=== PATIENT | female | born 1995 | race Caucasian/White ===

== ENCOUNTER 2020-01-25 17:26 | Inpatient (IN) ==
[2020-01-25 18:14] LABS: Bacteria,Urine Few per hpf (None-Few); Bilirubin,Urine Negative (Negative); Blood,Urine Negative (Negative); Clarity,Urine Turbid (Clear); Color,Urine Yellow (Yellow); Glucose,Urine (UA) Normal (Normal); Ketones,Urine Negative (Negative); Leukocyte Esterase,Urine Negative (Negative); Mucus,Urine Few per lpf (None-Few); Nitrite,Urine Negative (Negative); PH,Urine 6.5 pH Units (5.0-8.0); Protein,Urine Trace mg/dL (Neg-Trace); RBC,Urine 0-3 per hpf (0-3); Specific Gravity,Urine 1.024 (1.010-1.025); Squamous Epithelial Cell,Urine Moderate per hpf (None-Few); Urobilinogen,Urine Normal (Normal)
[2020-01-25 18:16] LABS: Amphetamine Screen,Urine Negative ng/mL (Cutoff=1000); Barbiturate Screen,Urine Negative ng/mL (Cutoff=200); Benzodiazepines Screen,Urine Negative ng/mL (Cutoff=200); Cannabinoid Screen,Urine Positive ng/mL (Cutoff = 50); Cocaine Screen,Urine Negative ng/mL (Cutoff= 300); Opiate Screen,Urine Negative ng/mL (Cutoff=300); Phencyclidine Screen,Urine Negative ng/mL (Cutoff=25)
[2020-01-25 18:17] LABS: Basophils # 0.1 K/mcL (0.0-0.2); Basophils % 0.7 %; Eosinophils # 0.1 K/mcL (0.0-0.6); Eosinophils % 0.5 %; Hematocrit 42.1 % (35.3-44.9); Hemoglobin 12.7 g/dL (11.5-15.4); Immature Granulocytes % 0.2 % (0-4); Lymphocytes # 2.1 K/mcL (0.6-4.6); Lymphocytes % 18.7 %; Mean Corpuscular HGB Conc 30.2 g/dL (31.6-35.5); Mean Corpuscular Hemoglobin 24.6 pg (28.0-33.3); Mean Corpuscular Volume 81.4 fL (83.0-100.0); Mean Platelet Volume 11.6 fL (9.4-12.4); Monocytes # 0.9 K/mcL (0.0-1.3); Monocytes % 8.3 %; Neutrophils # 8.1 K/mcL (1.6-8.9); Platelet Count 296 K/mcL (140-400); Red Blood Count 5.17 M/mcL (3.82-4.97); Red Cell Distribution Width 15.5 % (11.5-14.5); Segmented Neutrophils % 71.6 %; White Blood Count 11.3 K/mcL (4.3-11.1)
[2020-01-25 18:33] LABS: Acetaminophen < 10 mcg/mL (10-20); BUN/Creatinine Ratio 19 (6-26); Blood Urea Nitrogen 11 mg/dL (6-20); Calcium 9.6 mg/dL (8.6-10.3); Carbon Dioxide 26 mEq/L (23-29); Chloride 103 mEq/L (98-107); Ethanol < 10 mg/dL (Less than 10); Glucose 93 mg/dL (70-105); Osmolality,Calculated 283 (280-300); Potassium 3.9 mEq/L (3.5-5.1); Salicylate < 2.5 mg/dL (15.0-30.0); Sodium 137 mEq/L (136-145); eGFR For African Americans > 60 (> 60); eGFR For Non-African Americans > 60 (> 60)
[2020-01-25] MEDS ORDERED: *HR* LORazepam 1 MG TABLET PO PRN (20:23)
[2020-01-25] MEDS ORDERED: haloperidoL 5 MG TABLET PO PRN (20:23)
[2020-01-25] MEDS ORDERED: *HR* LORazepam 2 MG/ML VIAL IM PRN (20:23)
[2020-01-25] MEDS ORDERED: MOM Conc 10 ML UD.LIQ PO PRN (20:23)
[2020-01-25] MEDS ORDERED: Haloperidol Lactate 5 MG/ML VIAL IM PRN (20:23)
[2020-01-25] MEDS ORDERED: Acetaminophen 325 MG TABLET PO PRN (20:23)
[2020-01-25] MEDS ORDERED: Mag Hydrox/Al Hydrox/Simeth 30 ML UDC PO PRN (20:23)
[2020-01-25] MEDS: hydrOXYzine pamoate 25 MG CAPSULE PO PRN (23:06)
[2020-01-25] MEDS: traZODone 50 MG TABLET PO PRN (23:06)
[2020-01-26] MEDS: BuPROPion XL (24 HR) 150 MG TABLET PO SCH (10:13)
[2020-01-26] MEDS: hydrOXYzine pamoate 25 MG CAPSULE PO PRN ×2 (10:14→21:33)
[2020-01-26] MEDS: traZODone 50 MG TABLET PO PRN (21:33)
[2020-01-27] MEDS ORDERED: Loratadine/Pseudophed (12 HR) 1 EACH TABLET PO PRN (09:41)
[2020-01-27] MEDS: BuPROPion XL (24 HR) 150 MG TABLET PO SCH (09:42)
[2020-01-27] MEDS: hydrOXYzine pamoate 25 MG CAPSULE PO PRN (10:59)
[2020-01-27 11:02] VITALS: BP 126/86
== END 2020-01-27 13:18 | disposition home or self-care (01) | DRG 751 ==
LOC: EMEROOARM 17:26 → 1ANU 20:14
PROVIDERS: ADMIT Psychiatry & Neurology Psychiatry; ATTEND Psychiatry & Neurology Psychiatry

== ENCOUNTER → 2021-07-31 19:24 | Observation (INO) ==
[2021-07-31 18:44] LABS: Bilirubin,Urine Negative (Negative); Blood,Urine Negative (Negative); Clarity,Urine Turbid (Clear); Color,Urine Yellow (Yellow); Glucose,Urine (UA) Normal (Normal); Ketones,Urine Trace mg/dL (Negative); Leukocyte Esterase,Urine Small (Negative); Mucus,Urine Few per lpf (None-Few); Nitrite,Urine Negative (Negative); Protein,Urine 50 mg/dL (Neg-Trace); Specific Gravity,Urine > 1.030 (1.010-1.025); Sperm,Urine Present per hpf (None Seen); Squamous Epithelial Cell,Urine Many per hpf (None-Few)
== END | disposition home or self-care (01) ==
LOC: 1NENULAB
PROVIDERS: ADMIT Student in an Organized Health Care Education/Training Program; ATTEND Student in an Organized Health Care Education/Training Program

== ENCOUNTER → 2021-10-08 21:57 | Observation (INO) ==
[2021-10-08 21:09] LABS: Bilirubin,Urine Negative (Negative); Blood,Urine Negative (Negative); Clarity,Urine Turbid (Clear); Color,Urine Yellow (Yellow); Glucose,Urine (UA) Normal (Normal); Ketones,Urine Negative (Negative); Leukocyte Esterase,Urine Small (Negative); Mucus,Urine Few per lpf (None-Few); Nitrite,Urine Negative (Negative); PH,Urine 6.5 pH Units (5.0-8.0); Protein,Urine 30 mg/dL (Neg-Trace); RBC,Urine 0-3 per hpf (0-3); Specific Gravity,Urine > 1.030 (1.010-1.025); Squamous Epithelial Cell,Urine Many per hpf (None-Few); Urobilinogen,Urine Normal (Normal); WBC,Urine 0-3 per hpf (0-3)
== END | disposition home or self-care (01) ==
LOC: 1NENULAB
PROVIDERS: ADMIT Registered Nurse; ATTEND Registered Nurse

== ENCOUNTER 2021-11-07 20:16 | Observation (INO) ==
[2021-11-07 20:46] LABS: Basophils % 0.3 %; Eosinophils % 0.4 %; Hematocrit 36.7 % (35.3-44.9); Hemoglobin 11.8 g/dL (11.5-15.4); Immature Granulocytes % 0.4 % (0-4); Lymphocytes # 1.9 K/mcL (0.6-4.6); Lymphocytes % 17.5 %; Mean Corpuscular HGB Conc 32.2 g/dL (31.6-35.5); Mean Corpuscular Hemoglobin 28.7 pg (28.0-33.3); Mean Corpuscular Volume 89.3 fL (83.0-100.0); Mean Platelet Volume 12.2 fL (9.4-12.4); Monocytes # 0.7 K/mcL (0.0-1.3); Monocytes % 6.4 %; Neutrophils # 8.4 K/mcL (1.6-8.9); Platelet Count 215 K/mcL (140-400); Red Blood Count 4.11 M/mcL (3.82-4.97); Red Cell Distribution Width 15.9 % (11.5-14.5); White Blood Count 11.1 K/mcL (4.3-11.1)
[2021-11-07 20:56] LABS: Protein/Creatinine Ratio,Urine 0.23 mg/mg (0.00-0.20)
[2021-11-07 20:59] LABS: Bacteria,Urine Few per hpf (None-Few); Bilirubin,Urine Negative (Negative); Blood,Urine Negative (Negative); Clarity,Urine Turbid (Clear); Color,Urine Yellow (Yellow); Glucose,Urine (UA) Normal (Normal); Ketones,Urine Trace mg/dL (Negative); Leukocyte Esterase,Urine Trace (Negative); Mucus,Urine Few per lpf (None-Few); Nitrite,Urine Negative (Negative); Protein,Urine 100 mg/dL (Neg-Trace); RBC,Urine 0-3 per hpf (0-3); Specific Gravity,Urine > 1.030 (1.010-1.025); Squamous Epithelial Cell,Urine Many per hpf (None-Few); Urobilinogen,Urine Normal (Normal)
[2021-11-07 21:06] LABS: Alanine Aminotransferase 7 Units/L (7-52); Aspartate Amino Transferase 9 Units/L (13-39); BUN/Creatinine Ratio 18 (6-26); Blood Urea Nitrogen 10 mg/dL (6-20); Lactate Dehydrogenase 98 Units/L (140-271); Uric Acid 5.5 mg/dL (2.3-7.6); eGFR For African Americans > 60 (> 60); eGFR For Non-African Americans > 60 (> 60)
== END 2021-11-07 21:17 | disposition home or self-care (01) ==
LOC: 1NENULAB
PROVIDERS: ADMIT Registered Nurse; ATTEND Registered Nurse

== ENCOUNTER → 2021-11-14 22:25 | Observation (INO) ==
[2021-11-14 21:09] LABS: Basophils % 0.2 %; Eosinophils # 0.1 K/mcL (0.0-0.6); Eosinophils % 0.6 %; Hematocrit 35.6 % (35.3-44.9); Hemoglobin 11.5 g/dL (11.5-15.4); Immature Granulocytes % 0.5 % (0-4); Lymphocytes # 2.1 K/mcL (0.6-4.6); Lymphocytes % 15.6 %; Mean Corpuscular HGB Conc 32.3 g/dL (31.6-35.5); Mean Corpuscular Volume 89.9 fL (83.0-100.0); Mean Platelet Volume 12.5 fL (9.4-12.4); Monocytes % 7.1 %; Neutrophils # 10.3 K/mcL (1.6-8.9); Platelet Count 210 K/mcL (140-400); Red Blood Count 3.96 M/mcL (3.82-4.97); Red Cell Distribution Width 16.5 % (11.5-14.5); White Blood Count 13.6 K/mcL (4.3-11.1)
[2021-11-14 21:25] LABS: Alanine Aminotransferase 9 Units/L (7-52); Aspartate Amino Transferase 12 Units/L (13-39); BUN/Creatinine Ratio 24 (6-26); Blood Urea Nitrogen 14 mg/dL (6-20); Lactate Dehydrogenase 105 Units/L (140-271); eGFR For African Americans > 60 (> 60); eGFR For Non-African Americans > 60 (> 60)
[2021-11-14 22:10] LABS: Protein/Creatinine Ratio,Urine 0.24 mg/mg (0.00-0.20)
[~2021-11-14 22:25] MED LIST: Metoclopramide 10 MG/2 ML VIAL IVP ONE
== END | disposition home or self-care (01) ==
LOC: 1NENULAB
PROVIDERS: ADMIT Registered Nurse; ATTEND Registered Nurse

== ENCOUNTER → 2021-11-16 18:13 | Observation (INO) ==
[2021-11-16 16:55] LABS: Basophils # 0.1 K/mcL (0.0-0.2); Basophils % 0.4 %; Eosinophils # 0.1 K/mcL (0.0-0.6); Eosinophils % 0.5 %; Hematocrit 36.6 % (35.3-44.9); Hemoglobin 12.1 g/dL (11.5-15.4); Immature Granulocytes % 0.4 % (0-4); Lymphocytes # 1.7 K/mcL (0.6-4.6); Lymphocytes % 13.9 %; Mean Corpuscular HGB Conc 33.1 g/dL (31.6-35.5); Mean Corpuscular Hemoglobin 29.8 pg (28.0-33.3); Mean Corpuscular Volume 90.1 fL (83.0-100.0); Mean Platelet Volume 12.2 fL (9.4-12.4); Neutrophils # 9.5 K/mcL (1.6-8.9); Platelet Count 236 K/mcL (140-400); Red Blood Count 4.06 M/mcL (3.82-4.97); Red Cell Distribution Width 16.4 % (11.5-14.5); Segmented Neutrophils % 76.8 %; White Blood Count 12.4 K/mcL (4.3-11.1)
[2021-11-16 16:56] LABS: Bacteria,Urine Few per hpf (None-Few); Bilirubin,Urine Negative (Negative); Blood,Urine Negative (Negative); Clarity,Urine Turbid (Clear); Color,Urine Yellow (Yellow); Glucose,Urine (UA) Normal (Normal); Ketones,Urine Trace mg/dL (Negative); Leukocyte Esterase,Urine Negative (Negative); Mucus,Urine Few per lpf (None-Few); Nitrite,Urine Negative (Negative); Protein,Urine 70 mg/dL (Neg-Trace); RBC,Urine 0-3 per hpf (0-3); Specific Gravity,Urine > 1.030 (1.010-1.025); Squamous Epithelial Cell,Urine Many per hpf (None-Few)
[2021-11-16 17:11] LABS: Protein/Creatinine Ratio,Urine 0.3 mg/mg (0.00-0.20)
[2021-11-16 17:22] LABS: Alanine Aminotransferase 10 Units/L (7-52); Aspartate Amino Transferase 13 Units/L (13-39); BUN/Creatinine Ratio 24 (6-26); Blood Urea Nitrogen 11 mg/dL (6-20); Lactate Dehydrogenase 113 Units/L (140-271); Uric Acid 4.8 mg/dL (2.3-7.6); eGFR For African Americans > 60 (> 60); eGFR For Non-African Americans > 60 (> 60)
== END | disposition home or self-care (01) ==
LOC: 1NENULAB
PROVIDERS: ADMIT Advanced Practice Midwife; ATTEND Advanced Practice Midwife

== ENCOUNTER 2021-11-20 18:13 | Inpatient (IN) ==
[2021-11-20] MEDS ORDERED: Ondansetron 4 MG/2 ML VIAL IVP PRN (18:34)
[2021-11-20] MEDS ORDERED: *HR* Nalbuphine 10 MG/ML AMPUL IV PRN (18:34)
[2021-11-20] MEDS ORDERED: Naloxone 0.4 MG/ML INJ IVP PRN (18:34)
[2021-11-20] MEDS ORDERED: Famotidine 20 MG/2 ML VIAL IVP PRN (18:34)
[2021-11-20 19:33] LABS: Basophils % 0.3 %; Eosinophils % 0.3 %; Hemoglobin 11.7 g/dL (11.5-15.4); Immature Granulocytes % 0.3 % (0-4); Lymphocytes # 1.8 K/mcL (0.6-4.6); Lymphocytes % 15.2 %; Mean Corpuscular HGB Conc 32.5 g/dL (31.6-35.5); Mean Corpuscular Hemoglobin 29.4 pg (28.0-33.3); Mean Corpuscular Volume 90.5 fL (83.0-100.0); Mean Platelet Volume 12.6 fL (9.4-12.4); Monocytes # 0.8 K/mcL (0.0-1.3); Monocytes % 6.5 %; Neutrophils # 9.2 K/mcL (1.6-8.9); Platelet Count 207 K/mcL (140-400); Red Blood Count 3.98 M/mcL (3.82-4.97); Red Cell Distribution Width 16.3 % (11.5-14.5); Segmented Neutrophils % 77.4 %; White Blood Count 11.9 K/mcL (4.3-11.1)
[2021-11-20 19:50] LABS: Amphetamine Screen,Urine Negative ng/mL (Cutoff=1000); Barbiturate Screen,Urine Negative ng/mL (Cutoff=200); Benzodiazepines Screen,Urine Negative ng/mL (Cutoff=200); Cannabinoid Screen,Urine Negative ng/mL (Cutoff = 50); Cocaine Screen,Urine Negative ng/mL (Cutoff= 300); Creatinine,Urine 116 mg/dL; Opiate Screen,Urine Negative ng/mL (Cutoff=300); Phencyclidine Screen,Urine Negative ng/mL (Cutoff=25); Protein/Creatinine Ratio,Urine 0.24 mg/mg (0.00-0.20)
[2021-11-20 19:54] LABS: Alanine Aminotransferase 10 Units/L (7-52); Aspartate Amino Transferase 11 Units/L (13-39); BUN/Creatinine Ratio 23 (6-26); Blood Urea Nitrogen 11 mg/dL (6-20); Lactate Dehydrogenase 121 Units/L (140-271); Uric Acid 4.7 mg/dL (2.3-7.6); eGFR For African Americans > 60 (> 60); eGFR For Non-African Americans > 60 (> 60)
[2021-11-20] MEDS ORDERED: Oxytocin 30 UNIT/503 ML BAG IVC SCH (20:30)
[2021-11-20] MEDS: Ringers Solution, Lactated 1,000 ML IVC SCH ×2 (20:40→22:35)
[2021-11-20] MEDS ORDERED: *HR* FentaNYL (PF) 100 MCG/2 ML VIAL EP ONE (22:37)
[2021-11-20] MEDS ORDERED: EPHEDrine 50 MG/ML VIAL IVP PRN (22:37)
[2021-11-20] MEDS ORDERED: Ropivacaine/PF 0.2% 20 ML VIAL EP ONE (22:37)
[2021-11-20] MEDS ORDERED: Epidural Premix (fent/bupiv) 110 ML EP ONE (22:38)
[2021-11-20] MEDS ORDERED: Epidural Premix (fent/bupiv) 110 ML EP SCH (22:45)
[2021-11-21] MEDS: Ringers Solution, Lactated 1,000 ML IVC SCH (01:59)
[2021-11-21] MEDS ORDERED: Acetaminophen 325 MG TABLET PO PRN (05:48)
[2021-11-21] MEDS ORDERED: Ropivacaine/PF 0.2% 20 ML VIAL ONE (15:27)
[2021-11-21] MEDS ORDERED: CeFAZolin Syr 3,000MG/30 ML 3,000 MG/30 ML SYRINGE IVPB ONE (20:04)
[2021-11-21] MEDS ORDERED: Azithromycin 500 MG in 0.9 % Sodium Chloride 250 ML IVPB PRN (20:04)
[2021-11-21] MEDS ORDERED: Metoclopramide 10 MG/2 ML VIAL IVP ONE (20:26)
[2021-11-21] MEDS ORDERED: Acetaminophen IV 1,000 MG/100 ML BAG IVPB ONE (20:34)
[2021-11-21] MEDS ORDERED: Ketorolac 30 MG/ML VIAL ONE (20:34)
[2021-11-21] MEDS ORDERED: Lidocaine/EPI 1:200k 2% PF 20 ML VIAL ONE (20:49)
[2021-11-21] MEDS ORDERED: *HR* Midazolam HCl 2 MG/2 ML VIAL ONE (21:24)
[2021-11-21] MEDS ORDERED: Ringers Solution, Lactated 1,000 ML ONE (21:31)
[2021-11-21] MEDS ORDERED: Ondansetron 4 MG/2 ML VIAL ONE (21:39)
[2021-11-21] MEDS ORDERED: *HR* FentaNYL (PF) 100 MCG/2 ML VIAL IVP PRN (22:01)
[2021-11-21] MEDS ORDERED: *HR* OxyCODONE Immed Rel 5 MG TABLET PO PRN (22:01)
[2021-11-21] MEDS ORDERED: Acetaminophen IV 1,000 MG/100 ML BAG IVPB PRN (22:01)
[2021-11-21] MEDS ORDERED: *HR* Morphine Sulfate/PF 10 MG/10 ML AMPUL ONE (22:17)
[2021-11-22] MEDS ORDERED: Metoclopramide 10 MG/2 ML VIAL IVP PRN (00:52)
[2021-11-22] MEDS ORDERED: *HR* Nalbuphine 10 MG/ML AMPUL IV PRN (01:48)
[2021-11-22] MEDS: Ondansetron 4 MG/2 ML VIAL IVP PRN ×2 (04:39→10:30)
[2021-11-22 05:00] LABS: Basophils % 0.2 %; Eosinophils % 0.1 %; Hematocrit 33.9 % (35.3-44.9); Hemoglobin 11.1 g/dL (11.5-15.4); Immature Granulocytes % 0.4 % (0-4); Lymphocytes # 1.5 K/mcL (0.6-4.6); Mean Corpuscular HGB Conc 32.7 g/dL (31.6-35.5); Mean Corpuscular Hemoglobin 29.8 pg (28.0-33.3); Mean Corpuscular Volume 90.9 fL (83.0-100.0); Mean Platelet Volume 12.6 fL (9.4-12.4); Monocytes # 0.9 K/mcL (0.0-1.3); Monocytes % 5.6 %; Neutrophils # 14.2 K/mcL (1.6-8.9); Platelet Count 173 K/mcL (140-400); Red Blood Count 3.73 M/mcL (3.82-4.97); Segmented Neutrophils % 84.7 %; White Blood Count 16.7 K/mcL (4.3-11.1)
[2021-11-22] MEDS: Ringers Solution, Lactated 1,000 ML IVC SCH ×2 (08:42→16:11)
[2021-11-22] MEDS ORDERED: Lurasidone 20 MG TABLET PO SCH (09:00)
[2021-11-22] MEDS: *HR* Enoxaparin 80 MG/0.8 ML SYRINGE SQ SCH ×2 (10:29→20:51)
[2021-11-22] MEDS: Prenatal Vit/FA 1 EACH TABLET PO SCH (10:30)
[2021-11-22] MEDS: metroNIDAZOLE 500 MG TABLET PO SCH ×3 (10:30→20:51)
[2021-11-22] MEDS: cephALEXin 500 MG CAPSULE PO SCH ×3 (10:30→20:52)
[2021-11-22] MEDS: Ibuprofen 600 MG TABLET PO SCH ×3 (11:42→18:53)
[2021-11-22] MEDS: Acetaminophen 325 MG TABLET PO SCH ×3 (15:10→17:36)
[2021-11-22] MEDS: Simethicone 80 MG TAB.CHEW PO PRN (20:51)
[2021-11-22] MEDS: Lurasidone 20 MG TABLET PO SCH (20:52)
[2021-11-22] MEDS: *HR* OxyCODONE Immed Rel 5 MG TABLET PO PRN (22:29)
[2021-11-23] MEDS: Acetaminophen 325 MG TABLET PO SCH ×4 (02:11→19:56)
[2021-11-23] MEDS: Ibuprofen 600 MG TABLET PO SCH ×4 (02:12→19:55)
[2021-11-23] MEDS: *HR* OxyCODONE Immed Rel 5 MG TABLET PO PRN ×3 (04:38→16:13)
[2021-11-23] MEDS: Simethicone 80 MG TAB.CHEW PO PRN ×2 (08:00→16:16)
[2021-11-23] MEDS: Prenatal Vit/FA 1 EACH TABLET PO SCH (08:00)
[2021-11-23] MEDS: *HR* Enoxaparin 80 MG/0.8 ML SYRINGE SQ SCH ×2 (08:00→19:57)
[2021-11-23] MEDS: cephALEXin 500 MG CAPSULE PO SCH ×3 (08:00→19:56)
[2021-11-23] MEDS: metroNIDAZOLE 500 MG TABLET PO SCH ×3 (08:02→19:54)
[2021-11-23] MEDS: Lurasidone 20 MG TABLET PO SCH (20:49)
[2021-11-24] MEDS: Simethicone 80 MG TAB.CHEW PO PRN ×2 (00:06→08:45)
[2021-11-24] MEDS: *HR* OxyCODONE Immed Rel 5 MG TABLET PO PRN ×3 (00:07→08:44)
[2021-11-24] MEDS ORDERED: NIFEdipine XL (24 HR) 60 MG TAB.ER.24 PO SCH ×2 (06:50→07:00)
[2021-11-24 06:52] VITALS: TEMP 98.3; O2SAT 96
[2021-11-24] MEDS: Acetaminophen 325 MG TABLET PO SCH (07:02)
[2021-11-24] MEDS: Ibuprofen 600 MG TABLET PO SCH (07:02)
[2021-11-24] MEDS: *HR* Enoxaparin 80 MG/0.8 ML SYRINGE SQ SCH (08:42)
[2021-11-24] MEDS: Prenatal Vit/FA 1 EACH TABLET PO SCH (08:45)
[2021-11-24 09:46] LABS: Basophils % 0.3 %; Eosinophils # 0.1 K/mcL (0.0-0.6); Eosinophils % 1.4 %; Hematocrit 29.4 % (35.3-44.9); Immature Granulocytes % 0.5 % (0-4); Lymphocytes # 1.5 K/mcL (0.6-4.6); Lymphocytes % 14.7 %; Mean Corpuscular HGB Conc 31.3 g/dL (31.6-35.5); Mean Corpuscular Volume 92.7 fL (83.0-100.0); Mean Platelet Volume 11.5 fL (9.4-12.4); Monocytes # 0.7 K/mcL (0.0-1.3); Monocytes % 6.4 %; Neutrophils # 7.9 K/mcL (1.6-8.9); Platelet Count 175 K/mcL (140-400); Red Blood Count 3.17 M/mcL (3.82-4.97); Red Cell Distribution Width 16.5 % (11.5-14.5); Segmented Neutrophils % 76.7 %; White Blood Count 10.3 K/mcL (4.3-11.1)
[2021-11-24 09:47] LABS: Hemoglobin 9.2 g/dL (11.5-15.4)
[2021-11-24 10:07] LABS: Alanine Aminotransferase 8 Units/L (7-52); Aspartate Amino Transferase 11 Units/L (13-39); BUN/Creatinine Ratio 10 (6-26); Blood Urea Nitrogen 6 mg/dL (6-20); Uric Acid 6.2 mg/dL (2.3-7.6); eGFR For African Americans > 60 (> 60); eGFR For Non-African Americans > 60 (> 60)
[2021-11-24 10:26] VITALS: BP 133/81; PULSE 97
== END 2021-11-24 12:46 | disposition home or self-care (01) | DRG 540 ==
LOC: 1NENULAB 18:13 → 1NENUOBS 11-22 00:51
PROVIDERS: ADMIT Advanced Practice Midwife; ATTEND Advanced Practice Midwife

== ENCOUNTER 2021-11-25 21:13 | Observation (INO) ==
[2021-11-25] MEDS ORDERED: *HR* Labetalol 20 MG/4 ML SYRINGE IVP ONE (21:56)
[2021-11-25 22:14] LABS: Basophils # 0.1 K/mcL (0.0-0.2); Basophils % 0.5 %; Eosinophils # 0.3 K/mcL (0.0-0.6); Eosinophils % 2.5 %; Hematocrit 33.2 % (35.3-44.9); Hemoglobin 10.6 g/dL (11.5-15.4); Immature Granulocytes % 0.6 % (0-4); Lymphocytes # 1.7 K/mcL (0.6-4.6); Lymphocytes % 17.5 %; Mean Corpuscular HGB Conc 31.9 g/dL (31.6-35.5); Mean Corpuscular Hemoglobin 29.3 pg (28.0-33.3); Mean Corpuscular Volume 91.7 fL (83.0-100.0); Mean Platelet Volume 11.2 fL (9.4-12.4); Monocytes # 0.6 K/mcL (0.0-1.3); Monocytes % 6.5 %; Neutrophils # 7.1 K/mcL (1.6-8.9); Platelet Count 257 K/mcL (140-400); Red Blood Count 3.62 M/mcL (3.82-4.97); Red Cell Distribution Width 15.8 % (11.5-14.5); Segmented Neutrophils % 72.4 %; White Blood Count 9.8 K/mcL (4.3-11.1)
[2021-11-25 22:29] LABS: Alanine Aminotransferase 13 Units/L (7-52); Albumin 3.3 g/dL (3.5-5.7); Albumin/Globulin Ratio 0.9 (1.1-2.2); Alkaline Phosphatase 84 Units/L (34-104); Aspartate Amino Transferase 18 Units/L (13-39); BUN/Creatinine Ratio 19 (6-26); Bilirubin,Total 0.3 mg/dL (0.3-1.0); Blood Urea Nitrogen 11 mg/dL (6-20); Calcium 9.3 mg/dL (8.6-10.3); Carbon Dioxide 25 mEq/L (23-29); Chloride 104 mEq/L (98-107); Globulin 3.5 g/dL (2.4-3.5); Glucose 96 mg/dL (70-105); Lactate Dehydrogenase 160 Units/L (140-271); Osmolality,Calculated 289 (280-300); Potassium 3.8 mEq/L (3.5-5.1); Sodium 140 mEq/L (136-145); Total Protein 6.8 g/dL (6.4-8.9); Uric Acid 5.3 mg/dL (2.3-7.6); eGFR For African Americans > 60 (> 60); eGFR For Non-African Americans > 60 (> 60)
[2021-11-25 22:41] LABS: Bacteria,Urine Few per hpf (None-Few); Bilirubin,Urine Negative (Negative); Blood,Urine Large (Negative); Clarity,Urine Clear (Clear); Color,Urine Colorless (Yellow); Glucose,Urine (UA) Normal (Normal); Ketones,Urine Negative (Negative); Leukocyte Esterase,Urine Small (Negative); Mucus,Urine Few per lpf (None-Few); Nitrite,Urine Negative (Negative); Protein,Urine Negative (Neg-Trace); RBC,Urine 30-50 per hpf (0-3); Specific Gravity,Urine 1.015 (1.010-1.025); Squamous Epithelial Cell,Urine Few per hpf (None-Few); Urobilinogen,Urine Normal (Normal)
[2021-11-25] MEDS ORDERED: Magnesium Sulf 20 gm/SW 500mL 20 GM/500 ML IV.SOLN IVC SCH (23:30)
[2021-11-26] MEDS: Magnesium Sulf 20 gm/SW 500mL 20 GM/500 ML IV.SOLN IVC SCH ×3 (01:00→19:42)
[2021-11-26] MEDS ORDERED: Magnesium Sulf 20 gm/SW 500mL 20 GM/500 ML IV.SOLN IVC SCH (01:00)
[2021-11-26] MEDS: Ringers Solution, Lactated 1,000 ML IVC SCH ×2 (01:00→13:10)
[2021-11-26] MEDS ORDERED: Calcium Gluconate 1,000 MG/10 ML VIAL IVP PRN ×2 (01:19→04:27)
[2021-11-26] MEDS: Ibuprofen 600 MG TABLET PO PRN ×3 (06:47→19:00)
[2021-11-26] MEDS: *HR* Enoxaparin 80 MG/0.8 ML SYRINGE SQ SCH ×2 (08:56→19:41)
[2021-11-26] MEDS: Sulfamethoxazole/Trimeth DS 1 EACH TABLET PO SCH ×2 (10:04→20:04)
[2021-11-27] MEDS: Ibuprofen 600 MG TABLET PO PRN ×2 (01:00→08:57)
[2021-11-27 07:56] VITALS: O2SAT 97
[2021-11-27] MEDS: *HR* Enoxaparin 80 MG/0.8 ML SYRINGE SQ SCH (08:56)
[2021-11-27] MEDS: Sulfamethoxazole/Trimeth DS 1 EACH TABLET PO SCH (08:57)
[2021-11-27 10:27] VITALS: BP 135/87; PULSE 81; TEMP 98.5
== END 2021-11-27 10:45 | disposition home or self-care (01) ==
LOC: EMEROOARM 21:13 → 1NENUOBS 21:13
PROVIDERS: ADMIT Student in an Organized Health Care Education/Training Program; ATTEND Student in an Organized Health Care Education/Training Program